=== PATIENT | female | born 1960 | race Hispanic/Latino ===

== ENCOUNTER 2017-09-20 11:47 | Emergency (ER) | payer MEDICAID ==
[~2017-09-20 11:47] MED LIST: ALPR2TAB2 PO; CLON0.2T PO; FLUO40CA7 PO; HYDR25TA PO; LOSA100T29 PO; METO50TA18 PO; OMEP20TA2 PO
[2017-09-20 12:09] LABS: BASOPHILS % (AUTO) 0.8 % (0.0-5.0); EOSINOPHILS % (AUTO) 3.5 % (0.0-8.0); HEMATOCRIT 39.1 % (36-48); LYMPHOCYTES % (AUTO) 30.6 % (21.0-51.0); MEAN CORPUSCULAR HEMOGLOBIN 29.5 pg (27.0-33.0); MEAN CORPUSCULAR HGB CONC 34.5 g/dL (32.0-36.0); MEAN CORPUSCULAR VOLUME 85.6 fL (79-99); MONOCYTES % (AUTO) 8.5 % (3.0-13.0); NEUTROPHILS % (AUTO) 56.6 % (40.0-77.0); NUCLEATED RED BLOOD CELLS 0.1 % (0.0-0.19); PLATELET COUNT (AUTO) 303 K/uL (130-400); RED BLOOD CELL COUNT(AUTO) 4.56 MIL/uL (4.00-5.50); RED CELL DISTRIBUTION WIDTH 13.4 % (11.0-15.5); WHITE BLOOD COUNT (AUTO) 7.1 K/uL (4.8-10.8)
[2017-09-20 12:14] LABS: CREATININE 0.9 mg/dL (0.5-1.5); POTASSIUM 3.5 mmol/L (3.5-5.1)
[2017-09-20 12:22] LABS: INR 1.01 (0.85-1.15); PARTIAL THROMBOPLASTIN TIME 24.9 SEC (26.3-35.5); PROTHROMBIN TIME 10.6 SEC (9.6-11.6)
[2017-09-20 12:30] LABS: BILIRUBIN,TOTAL 0.6 mg/dL (0.2-1.0); CREATINE KINASE MB 1.1 ng/mL (0.5-3.6); TOTAL PROTEIN, SERUM 8.1 g/dL (6.0-8.3)
[2017-09-20] MEDS ORDERED: KETOROLAC TROMETHAMINE 30MG/ML ONE (12:46)
[2017-09-20] MEDS ORDERED: METHYLPREDNISOLONE SOD SUCC 125MG/2ML VIAL ONE (12:46)
[2017-09-20] MEDS ORDERED: ONDANSETRON HCL 4 MG/2 ML VIAL ONE ×2 (12:46→15:11)
[2017-09-20] MEDS ORDERED: SODIUM CHLORIDE 0.9% 100 ML IV ONE (12:46)
[2017-09-20] MEDS ORDERED: METOCLOPRAMIDE 10 MG/2 ML VIAL ONE (12:46)
[2017-09-20] MEDS ORDERED: DiphenhydrAMINE HCL 50 MG/ML VIAL ONE (12:46)
[2017-09-20] MEDS ORDERED: MORPHINE SULFATE 2 MG/ML 1ML SYG ONE (15:12)
== END 2017-09-20 17:29 | disposition home or self-care (01) ==
LOC: EDH 11:47
DX: G43.019 Migraine without aura, intractable, without status migrainosus (principal); R07.9 Chest pain, unspecified; I10 Essential (primary) hypertension; Z88.8 Allergy status to other drugs, medicaments and biological substances
CPT/HCPCS: 36415; 70450; 71045; 80053; 82550; 82553; 84484 ×2; 85025; 85610; 85730; 93005; 96374; 96375; 96376; 99285; J1200; J1885; J2405 ×2; J2765; J2930

== ENCOUNTER 2018-09-03 19:12 | Inpatient (IN) | payer MEDICAID, OTHER ==
[~2018-09-03] VITALS: Ht 160 cm; Wt 65.9 kg
[~2018-09-03 19:12] MED LIST changes: -LOSA100T29 PO; +LOSA100T58 PO
[2018-09-03] MEDS ORDERED: ONDANSETRON HCL 4 MG/2 ML VIAL ONE (19:59)
[2018-09-03] MEDS ORDERED: ACETAMINOPHEN EXTRA STRENGTH 500 MG TABLET ONE (19:59)
[2018-09-03] MEDS ORDERED: SODIUM CHLORIDE 0.9% 1000ML 1,000 ML IV ONE (20:00)
[2018-09-03] MEDS ORDERED: MORPHINE SULFATE 4 MG/1ML SYG ONE (20:00)
[2018-09-03 20:09] LABS: BASOPHILS % (AUTO) 2.8 % (0.0-5.0); EOSINOPHILS % (AUTO) 0.3 % (0.0-8.0); HEMATOCRIT 42.4 % (36-48); LYMPHOCYTES % (AUTO) 18.8 % (21.0-51.0); MEAN CORPUSCULAR HEMOGLOBIN 29.1 pg (27.0-33.0); MEAN CORPUSCULAR HGB CONC 34.6 g/dL (32.0-36.0); MEAN CORPUSCULAR VOLUME 84.1 fL (79-99); MONOCYTES % (AUTO) 7.8 % (3.0-13.0); NEUTROPHILS % (AUTO) 70.3 % (40.0-77.0); NUCLEATED RED BLOOD CELLS 0.1 % (0.0-0.19); PLATELET COUNT (AUTO) 482 K/uL (130-400); RED BLOOD CELL COUNT(AUTO) 5.04 MIL/uL (4.00-5.50); RED CELL DISTRIBUTION WIDTH 14.4 % (11.0-15.5)
[2018-09-03 20:25] LABS: ALBUMIN 4.1 g/dL (3.5-5.0); BILIRUBIN,TOTAL 0.7 mg/dL (0.2-1.0); CREATININE 1.1 mg/dL (0.5-1.5); TOTAL PROTEIN, SERUM 8.7 g/dL (6.0-8.3)
[2018-09-03] MEDS ORDERED: IOHEXOL-350 75 ML VIAL IV ONE (20:39)
[2018-09-03 21:43] LABS: APPEARANCE,URINE Clear (CLEAR); BILIRUBIN,URINE Negative (NEGATIVE); COLOR,URINE Yellow (YELLOW); GLUCOSE, URINE (UA) Negative (NEGATIVE); KETONES,URINE Negative (NEGATIVE); LEUKOCYTE ESTERASE ,URINE Moderate (NEGATIVE); NITRATE,URINE Negative (NEGATIVE); OCCULT BLOOD,URINE Negative (NEGATIVE); PH,URINE 6.5 (5.0-8.0); PROTEIN,URINE Negative (NEGATIVE); UROBILINOGEN,URINE 0.2 mg/dL (0.2-1.0)
[2018-09-03 21:48] LABS: BACTERIA,URINE Few /HPF (None Seen); RBC,URINE 0-1 /HPF (0-1); SQUAMOUS EPITHELIAL CELL,UR Few /HPF (0-2)
[2018-09-03] MEDS ORDERED: MORPHINE SULFATE 2 MG/ML 1ML SYG ONE (22:11)
[2018-09-03] MEDS ORDERED: CEFTRIAXONE SODIUM 1 GM ONE (22:20)
[2018-09-03] MEDS ORDERED: CEFTRIAXONE SODIUM 1 GM IV SCH (23:15)
[2018-09-03] MEDS ORDERED: LORAZEPAM 2 MG/ML 1 ML VIAL IVP PRN (23:15)
[2018-09-03] MEDS ORDERED: ACETAMINOPHEN 325 MG TAB PO PRN ×2 (23:15)
[2018-09-04] VITALS (7 sets, daily range): BP systolic 129–164; BP diastolic 83–115
[2018-09-04] MEDS ORDERED: POTASSIUM CHLORIDE 20 MEQ ERTAB PO ONE (00:58)
[2018-09-04] MEDS ORDERED: SODIUM CHLORIDE 0.9% 1000ML 1,000 ML IV ONE (00:59)
[2018-09-04] MEDS: SODIUM CHLORIDE 0.9% 1000ML 1,000 ML IV SCH ×3 (01:57→18:39)
[2018-09-04] MEDS: ONDANSETRON HCL 4 MG/2 ML VIAL IV PRN ×3 (02:59→14:48)
[2018-09-04] MEDS: CEFTRIAXONE SODIUM 1 GM IV SCH ×2 (08:50→20:42)
[2018-09-04 08:51] LABS: URIC ACID 3.4 mg/dL (2.6-7.2)
[2018-09-04] MEDS: FAMOTIDINE/PF 20 MG/2 ML VIAL IV SCH ×2 (09:39→20:42)
[2018-09-04] MEDS ORDERED: TOPI50TA24 PO (10:53)
[2018-09-04] MEDS: HYDRALAZINE HCL 20 MG/ML VIAL IV PRN (11:10)
--- NOTE | 2018-09-04 11:10 | NUR ---
PATIENT WITH 162/105-83 HEART RATE. GAVE [address] MAI.
--- NOTE | 2018-09-04 11:45 | NUR ---
PATIENT BLOOD PRESSURE AT 133/98 -[address] MAI NOTIFIED AND GAVE NEW ORDERS.
[2018-09-04] MEDS ORDERED: ALPRAZOLAM 1 MG TAB PO SCH (12:00)
[2018-09-04] MEDS ORDERED: METOPROLOL TARTRATE 25 MG TAB PO SCH (12:00)
--- NOTE | 2018-09-04 12:22 | NUR ---
GAVE XANAX 2 MG PO AND LOPRESSOR 25 MG . WILL CONTINUE TO MONITOR. DR. MAI NOTIFIED. PATIENT WAS VERY ANXIOUS AND STATED SHE TAKES XANAX AT HOME . 177/108 HEART RATE 116.
--- NOTE | 2018-09-04 13:00 | NUR ---
ALISSA INITIAL Met w patient and son ainsley at bedside- lives w son matthew will provid ride home. address updated/corrected. hx lupus, weeks of nausea. employed, nurse, at [employer]. 'has always had insurance, right now in between, new employer" open enrollement starting, will try to sign up" no dme, indp of adls, dcp home Addendum: 09/04/18 at 1909 by BRISA SEARS RN CM Amended: Links added.
--- NOTE | 2018-09-04 13:15 | NUR ---
BLOOD PRESSURE AT 150/90- HEART RATE 94. PATIENT RESTING COMFORTABLY . PATIENT NEVER EXPERIENCE ANY SIDE EFFECTS OF HYPERTENSIVE CRISIS AND STATED SHE ONLY TAKES HER BLOOD PRESSURE MEDS AT BEDTIME.
--- NOTE | 2018-09-04 16:00 | NUR ---
BLOOD PRESSURE AT 129/86-90 HEART RATE. PATIENT VOICES NO COMPLAINTS.
[2018-09-04] MEDS ORDERED: ONDANSETRON HCL 4 MG/2 ML VIAL IVP PRN (17:15)
--- NOTE | 2018-09-04 18:14 | NUR ---
Nutrition Intervention: Nutrition consult due to recent 12# wt. loss. Pt. admitted with Dx of Fever, Sepsis, retroperitoneal, Lymphadenopathy. Pt. reports wt. has decreased by 13#(8% of UBW) in 1 month due to problems with N/V. Pt. on Heart Healthy diet with poor p.o. intake due to problems with nausea. Pt. on Zofran for upper GI distress. Labs reviewed(Alb 4.1). LBM: 09/02/18. SR-20, elastic. BMI: 25.7, overweight. Recommendations: 1) Continue current diet. 2) Continue antiemetic medication to help relieve upper GI distress. 3) Continue to monitor pt's nutritional status. 4) Consult RD as nutrition concerns arise. Addendum: 09/04/18 at [address] Amended: Links added.
[2018-09-04] MEDS: METOCLOPRAMIDE 10 MG/2 ML VIAL IVP PRN (18:34)
[2018-09-04] MEDS: HYDROCHLOROTHIAZIDE 25 MG TABLET PO SCH (20:42)
[2018-09-04] MEDS: PANTOPRAZOLE SODIUM 40 MG TABLET.DR PO SCH (20:42)
[2018-09-04] MEDS: ALPRAZOLAM 1 MG TAB PO SCH (20:42)
[2018-09-04] MEDS: CLONIDINE HCL 0.2 MG TABLET PO SCH (20:43)
[2018-09-04] MEDS: METOPROLOL TARTRATE 25 MG TAB PO SCH (20:44)
[2018-09-05] VITALS (10 sets, daily range): BP systolic 93–196; BP diastolic 63–114
[2018-09-05] MEDS: MORPHINE SULFATE 4 MG/1ML SYG IV PRN ×2 (05:00→08:47)
[2018-09-05] MEDS: SODIUM CHLORIDE 0.9% 1000ML 1,000 ML IV SCH ×2 (05:08→15:13)
[2018-09-05 05:58] LABS: HEMATOCRIT 34.5 % (36-48); MEAN CORPUSCULAR HEMOGLOBIN 28.5 pg (27.0-33.0); MEAN CORPUSCULAR HGB CONC 33.3 g/dL (32.0-36.0); MEAN CORPUSCULAR VOLUME 85.6 fL (79-99); PLATELET COUNT (AUTO) 372 K/uL (130-400); RED BLOOD CELL COUNT(AUTO) 4.03 MIL/uL (4.00-5.50); RED CELL DISTRIBUTION WIDTH 14.5 % (11.0-15.5); WHITE BLOOD COUNT (AUTO) 7.6 K/uL (4.8-10.8)
[2018-09-05 06:00] LABS: ALBUMIN 3.2 g/dL (3.5-5.0); CRP QUANTITATIVE 14.4 mg/L (0.00-9.0); INR 1.04 (0.85-1.15); PARTIAL THROMBOPLASTIN TIME 32.7 SEC (26.3-35.5); PROTHROMBIN TIME 10.9 SEC (9.6-11.6)
[2018-09-05 06:02] LABS: POTASSIUM 2.9 mmol/L (3.5-5.1)
[2018-09-05] MEDS ORDERED: MAGNESIUM 2GM PREMIX 50ML 50 ML IV PRN (07:00)
[2018-09-05 07:16] LABS: ERYTHROCYTE SEDIMENTATION RATE 23 MM/HR (0-30)
[2018-09-05] MEDS: FAMOTIDINE/PF 20 MG/2 ML VIAL IV SCH ×2 (08:51→20:40)
[2018-09-05] MEDS: CEFTRIAXONE SODIUM 1 GM IV SCH ×2 (08:51→20:40)
[2018-09-05] MEDS: TOPIRAMATE 25 MG TABLET PO SCH (08:51)
[2018-09-05] MEDS: METOPROLOL TARTRATE 25 MG TAB PO SCH ×2 (08:51→20:40)
[2018-09-05] MEDS: ONDANSETRON HCL 4 MG/2 ML VIAL IV PRN (12:54)
[2018-09-05] MEDS: LIDOCAINE HCL-MPF 1% 2ML VIAL IVP PRN ×2 (12:54→18:18)
[2018-09-05] MEDS: POTASSIUM CHLORIDE 20MEQ/100ML 100 ML IV PRN ×2 (12:55→18:15)
--- NOTE | 2018-09-05 13:28 | NUR ---
TAKEN TO IR VIA BED FOR SCHEDULED BIOPSY.
[2018-09-05] MEDS ORDERED: MIDAZOLAM HCL 1 MG/ML 2ML VIAL ONE (14:43)
[2018-09-05] MEDS ORDERED: LIDOCAINE HCL 1% 10 ML VIAL ONE (14:43)
[2018-09-05] MEDS ORDERED: FENTANYL CITRATE PF 50 MCG/1 ML 2ML VIAL ONE (14:43)
--- NOTE | 2018-09-05 15:05 | NUR ---
CT GD RETROPERITONEAL BX PROCEDURE PERFORMED BY DR RUIZ. PUNCTURE SITE LEFT LUMBAR REGION AND PATIENT TOLERATED PROCEDURE WELL. SPECIMEN X 6 COLLECTED AND SENT TO LAB. END OF PROCEDURE AT 1520. BIOPSY NEEDLE REMOVED AND DRESSING APPLIED. NO BLEEDING NOTED. REPORT GIVEN TO IVAN ASTORGA AND PATIENT TRANSPORTED TO 3RD FLOOR RM 305 VIA BED. AAO X3 WITH NO C/O PAIN.
--- NOTE | 2018-09-05 15:55 | NUR ---
ARRIVED TO THE UNIT ALERT AND ORIENTED SEEMINGLY ANXIOUS, VOICED SCIATIC PAIN AT 6 AND REPORTED NO RELIEF FROM THE ZOFRAN. HOSPITALIST TEOFILO COBB WAS MADE AWARE AND SHE SAID THAT SHE WILL ORDER PHENERGAN IV AFTER SHE SEES ANOTHER PATIENT. ACTUAL BP 196/110 WILL MEDICATE PER PRN ORDER.
[2018-09-05] MEDS ORDERED: PROMETHAZINE HCL 25 MG/ML 1ML AMPULE IM PRN (16:30)
[2018-09-05] MEDS: HYDRALAZINE HCL 20 MG/ML VIAL IV PRN (16:38)
[2018-09-05] MEDS: MORPHINE SULFATE 2 MG/ML 1ML SYG IV PRN (16:44)
[2018-09-05] MEDS: PANTOPRAZOLE SODIUM 40 MG TABLET.DR PO SCH (20:40)
[2018-09-05] MEDS: HYDROCHLOROTHIAZIDE 25 MG TABLET PO SCH (20:40)
[2018-09-05] MEDS: ALPRAZOLAM 1 MG TAB PO SCH (20:40)
[2018-09-05] MEDS: CLONIDINE HCL 0.2 MG TABLET PO SCH (20:41)
[2018-09-06 05:00] VITALS: BP 104/82
[2018-09-06 05:25] LABS: HEMATOCRIT 36.2 % (36-48); LYMPHOCYTES % (AUTO) 14.4 % (21.0-51.0); MEAN CORPUSCULAR HEMOGLOBIN 29.1 pg (27.0-33.0); MEAN CORPUSCULAR HGB CONC 33.8 g/dL (32.0-36.0); MONOCYTES % (AUTO) 10.1 % (3.0-13.0); NEUTROPHILS % (AUTO) 73.5 % (40.0-77.0); NUCLEATED RED BLOOD CELLS 0.1 % (0.0-0.19); PLATELET COUNT (AUTO) 344 K/uL (130-400); RED BLOOD CELL COUNT(AUTO) 4.21 MIL/uL (4.00-5.50); RED CELL DISTRIBUTION WIDTH 14.3 % (11.0-15.5); WHITE BLOOD COUNT (AUTO) 9.5 K/uL (4.8-10.8)
[2018-09-06 05:39] LABS: POTASSIUM 3.6 mmol/L (3.5-5.1)
[2018-09-06 08:00] VITALS: BP 125/88
[2018-09-06] MEDS: FAMOTIDINE/PF 20 MG/2 ML VIAL IV SCH ×2 (09:00→20:35)
[2018-09-06] MEDS: METOCLOPRAMIDE 10 MG/2 ML VIAL IVP PRN (09:00)
[2018-09-06] MEDS: TOPIRAMATE 25 MG TABLET PO SCH (09:00)
[2018-09-06] MEDS: ONDANSETRON HCL 4 MG/2 ML VIAL IV PRN (09:00)
[2018-09-06] MEDS: CEFTRIAXONE SODIUM 1 GM IV SCH ×2 (09:01→20:35)
[2018-09-06] MEDS: METOPROLOL TARTRATE 25 MG TAB PO SCH ×2 (09:01→20:35)
[2018-09-06] MEDS: SODIUM CHLORIDE 0.9% 1000ML 1,000 ML IV SCH (09:01)
[2018-09-06 12:00] VITALS: BP 108/75
[2018-09-06] MEDS: METRONIDAZOLE 500MG/100ML BAG 100 ML IV SCH ×2 (14:43→20:44)
[2018-09-06] MEDS: METOCLOPRAMIDE 10 MG/2 ML VIAL IVP SCH ×2 (14:43→20:35)
[2018-09-06 16:00] VITALS: BP 128/77
[2018-09-06 20:00] VITALS: BP 128/88
[2018-09-06] MEDS: CLONIDINE HCL 0.2 MG TABLET PO SCH (20:34)
[2018-09-06] MEDS: HYDROCHLOROTHIAZIDE 25 MG TABLET PO SCH (20:35)
[2018-09-06] MEDS: PANTOPRAZOLE SODIUM 40 MG TABLET.DR PO SCH (20:35)
[2018-09-06] MEDS ORDERED: ALPRAZOLAM 1 MG TAB PO SCH (21:00)
[2018-09-07] VITALS: BP 96/65
[2018-09-07 04:00] VITALS: BP 97/66
[2018-09-07] MEDS: SODIUM CHLORIDE 0.9% 1000ML 1,000 ML IV SCH (04:44)
[2018-09-07] MEDS: METRONIDAZOLE 500MG/100ML BAG 100 ML IV SCH ×2 (04:44→13:23)
[2018-09-07 05:43] LABS: HEMATOCRIT 32.9 % (36-48); MEAN CORPUSCULAR HEMOGLOBIN 29.3 pg (27.0-33.0); MEAN CORPUSCULAR HGB CONC 34.4 g/dL (32.0-36.0); MEAN CORPUSCULAR VOLUME 85.2 fL (79-99); PLATELET COUNT (AUTO) 286 K/uL (130-400); RED BLOOD CELL COUNT(AUTO) 3.86 MIL/uL (4.00-5.50); RED CELL DISTRIBUTION WIDTH 14.4 % (11.0-15.5); WHITE BLOOD COUNT (AUTO) 6.8 K/uL (4.8-10.8)
[2018-09-07 06:01] LABS: CREATININE 0.9 mg/dL (0.5-1.5)
[2018-09-07 06:10] LABS: POTASSIUM 2.8 mmol/L (3.5-5.1)
[2018-09-07] MEDS: POTASSIUM CHLORIDE 20MEQ/100ML 100 ML IV PRN ×2 (06:13→13:24)
[2018-09-07] MEDS: LIDOCAINE HCL-MPF 1% 2ML VIAL IVP PRN ×2 (06:14→13:24)
--- NOTE | 2018-09-07 06:19 | NUR ---
Low potassium Received call from lab regarding potassium of 2.8, started pt on potassium protocol.
[2018-09-07 08:00] VITALS: BP 99/77
[2018-09-07] MEDS: CEFTRIAXONE SODIUM 1 GM IV SCH (08:33)
[2018-09-07] MEDS: METOCLOPRAMIDE 10 MG/2 ML VIAL IVP SCH ×2 (08:33→13:24)
[2018-09-07] MEDS: FAMOTIDINE/PF 20 MG/2 ML VIAL IV SCH (08:33)
[2018-09-07] MEDS: TOPIRAMATE 25 MG TABLET PO SCH (08:34)
[2018-09-07] MEDS ORDERED: METOPROLOL TARTRATE 25 MG TAB PO SCH (11:00)
[2018-09-07 12:00] VITALS: BP 124/77
--- NOTE | 2018-09-07 12:00 | NUR ---
Nutrition f/u: Pt continues with poor po intake d/t nausea. Pt with antinausea medication prescribed however states today is "Ok". Pt declined nutrition supplementation and MVI recommendations made by YASMINE, states she only wants cold items such as [place] ice and jello. Recommendations: Continue current diet therapy. Provide cold items as per pt's request items. Consult YASMINE as nutrition concerns arise. Addendum: 09/07/18 at [address] RD Amended: Links added.
[2018-09-07] MEDS: MORPHINE SULFATE 2 MG/ML 1ML SYG IV PRN (13:12)
[2018-09-07 16:00] VITALS: BP 126/84
[2018-09-07] MEDS ORDERED: METO5TAB87 PO (17:43)
[2018-09-07] MEDS ORDERED: CEFD300C3 PO (17:43)
[2018-09-07] MEDS ORDERED: ONDA4TAB4 PO (17:43)
[2018-09-07] MEDS ORDERED: PANT40TA25 PO (17:43)
[2018-09-07] MEDS ORDERED: METR250T PO (17:43)
[2018-09-07 18:57] LABS: CREATININE 1.2 mg/dL (0.5-1.5)
[2018-09-07 19:00] VITALS: BP 136/94
[2018-09-07 19:10] LABS: POTASSIUM 3.6 mmol/L (3.5-5.1)
--- NOTE | 2018-09-07 20:50 | NUR ---
DISCHARGE PATIENT GIVEN DISCHARGE INSTRUCTIONS VIA TEACH BACK. 22G PIV TO RFA DISCONTINUED, TIP INTACT. PATIENT TO MAKE FOLLOW UP APPOINTMENTS WITH PCP AND ONCOLOGISTS. RX GIVEN. POTASSIUM REPLACED BEFORE DISCHARGE. PATIENT STABLE AT THIS TIME. FAMILY AT BEDSIDE TO TRANSPORT PATIENT HOME. JULY, ARON WHEELED PATIENT DOWN STAIRS.
[2018-09-07] MEDS ORDERED: HYDROCHLOROTHIAZIDE 25 MG TABLET PO SCH (21:00)
== END 2018-09-07 21:12 | disposition home or self-care (01) | DRG 854 ==
LOC: EDH 19:12 → EDHIP 19:13 → 3BH 09-04 01:10
PROVIDERS: ADMIT Internal Medicine; ATTEND Internal Medicine
PROC: 07BD3ZX Excision of Aortic Lymphatic, Percutaneous Approach, Diagnostic (ICD-10-PCS; principal; 2018-09-05)
DX: A41.9 Sepsis, unspecified organism (principal); N39.0 Urinary tract infection, site not specified; I88.9 Nonspecific lymphadenitis, unspecified; D64.9 Anemia, unspecified; E83.42 Hypomagnesemia; E87.6 Hypokalemia; F32.9 Major depressive disorder, single episode, unspecified; G43.909 Migraine, unspecified, not intractable, without status migrainosus; G47.00 Insomnia, unspecified; I10 Essential (primary) hypertension; K21.9 Gastro-esophageal reflux disease without esophagitis; K44.9 Diaphragmatic hernia without obstruction or gangrene; K57.30 Diverticulosis of large intestine without perforation or abscess without bleeding; M54.30 Sciatica, unspecified side; K80.20 Calculus of gallbladder without cholecystitis without obstruction; M32.9 Systemic lupus erythematosus, unspecified; R63.4 Abnormal weight loss; Z68.25 Body mass index [BMI] 25.0-25.9, adult; Z88.8 Allergy status to other drugs, medicaments and biological substances; Z85.42 Personal history of malignant neoplasm of other parts of uterus; Z90.710 Acquired absence of both cervix and uterus; Z80.0 Family history of malignant neoplasm of digestive organs; Z80.3 Family history of malignant neoplasm of breast; Z80.8 Family history of malignant neoplasm of other organs or systems
CPT/HCPCS: 36415; 49180; 71045; 74177; 77012; 80048; 80053; 81001; 82040; 83605; 83615; 83690; 84484; 84550; 85025; 85027; 85610; 85651; 85730; 86140; 87040; 87804; 88305; 93005; 99152; A4218; G0378; J0360; J0696; J2060; J2250; J2270; J2405; J2550; J2765; J3010; J3480; J3490; J7030; Q9967

== ENCOUNTER 2018-10-16 12:42 | Emergency (ER) | payer OTHER ==
[~2018-10-16 12:42] MED LIST changes: +CEFD300C3 PO; +METO5TAB87 PO; +METR250T PO; +ONDA4TAB4 PO; +PANT40TA25 PO; +TOPI50TA24 PO
[2018-10-16 13:24] LABS: BASOPHILS % (AUTO) 1.3 % (0.0-5.0); EOSINOPHILS % (AUTO) 0.8 % (0.0-8.0); LYMPHOCYTES % (AUTO) 19.9 % (21.0-51.0); MEAN CORPUSCULAR HEMOGLOBIN 28.7 pg (27.0-33.0); MEAN CORPUSCULAR HGB CONC 33.7 g/dL (32.0-36.0); MONOCYTES % (AUTO) 8.2 % (3.0-13.0); NEUTROPHILS % (AUTO) 69.8 % (40.0-77.0); NUCLEATED RED BLOOD CELLS 0.2 % (0.0-0.19); PLATELET COUNT (AUTO) 330 K/uL (130-400); RED BLOOD CELL COUNT(AUTO) 4.83 MIL/uL (4.00-5.50); RED CELL DISTRIBUTION WIDTH 14.8 % (11.0-15.5); WHITE BLOOD COUNT (AUTO) 7.6 K/uL (4.8-10.8)
[2018-10-16 13:28] LABS: POTASSIUM 3.5 mmol/L (3.5-5.1)
[2018-10-16] MEDS ORDERED: PROCHLORPERAZINE EDISYLATE 10 MG/2 ML VIAL ONE (13:28)
[2018-10-16 13:32] LABS: ALBUMIN 4.1 g/dL (3.5-5.0); BILIRUBIN,TOTAL 0.7 mg/dL (0.2-1.0); TOTAL PROTEIN, SERUM 8.3 g/dL (6.0-8.3)
[2018-10-16 14:23] LABS: APPEARANCE,URINE Clear (CLEAR); BILIRUBIN,URINE Negative (NEGATIVE); COLOR,URINE Yellow (YELLOW); GLUCOSE, URINE (UA) Negative (NEGATIVE); KETONES,URINE Trace mg/dL (NEGATIVE); LEUKOCYTE ESTERASE ,URINE Moderate (NEGATIVE); NITRATE,URINE Negative (NEGATIVE); OCCULT BLOOD,URINE Negative (NEGATIVE); PH,URINE 6.5 (5.0-8.0); PROTEIN,URINE Trace mg/dL (NEGATIVE)
[2018-10-16 14:52] LABS: RBC,URINE 0-1 /HPF (0-1)
[2018-10-16 14:53] LABS: BACTERIA,URINE Few /HPF (None Seen); MUCUS,URINE Few LPF (None Seen); SQUAMOUS EPITHELIAL CELL,UR Few /HPF (0-2)
[2018-10-16] MEDS ORDERED: ONDANSETRON HCL 4 MG/2 ML VIAL ONE (16:54)
[2018-10-16] MEDS ORDERED: KETOROLAC TROMETHAMINE 30MG/ML ONE (16:54)
== END 2018-10-16 18:25 | disposition home or self-care (01) ==
LOC: EDH 12:42
DX: R11.2 Nausea with vomiting, unspecified (principal); M54.9 Dorsalgia, unspecified; F32.9 Major depressive disorder, single episode, unspecified; K21.9 Gastro-esophageal reflux disease without esophagitis; I10 Essential (primary) hypertension; G43.909 Migraine, unspecified, not intractable, without status migrainosus; Z88.8 Allergy status to other drugs, medicaments and biological substances; Z90.710 Acquired absence of both cervix and uterus
CPT/HCPCS: 36415; 74176; 80053; 81001; 82550; 83690; 84484; 85025; 93005; 96361; 96374; 96375; 99285; J0780; J1885; J2405

== ENCOUNTER → 2019-02-12 | Outpatient (CLI) | payer OTHER | END | disposition home or self-care (01) | LOC: RAH 14:54 | PROVIDERS: ATTEND Internal Medicine Hematology & Oncology | DX: Z12.31 Encounter for screening mammogram for malignant neoplasm of breast (principal) | CPT/HCPCS: 77067 ==

== ENCOUNTER → 2020-02-16 | Outpatient (CLI) | payer MEDICAID ==
[~2020-02-16] MED LIST changes: -PANT40TA25 PO; +PANT40TA55 PO
== END | disposition home or self-care (01) ==
LOC: RAH 10:29
PROVIDERS: ATTEND Internal Medicine Hematology & Oncology
DX: Z12.31 Encounter for screening mammogram for malignant neoplasm of breast (principal); N64.89 Other specified disorders of breast
CPT/HCPCS: 77067